=== PATIENT | male | born 1965 | race Caucasian/White ===

== ENCOUNTER → 2017-10-05 | Outpatient (CLI) | payer OTHER, BC | LOC: MHCPAIN 15:05 | DX: G89.29 Other chronic pain (principal); M47.27 Other spondylosis with radiculopathy, lumbosacral region; M53.3 Sacrococcygeal disorders, not elsewhere classified | CPT/HCPCS: G0463 ==

== ENCOUNTER 2020-01-29 09:48 | Inpatient (IN) | payer BC, OTHER ==
[~2020-01-29] VITALS: Ht 188 cm; Wt 124.5 kg
[2020-01-29 10:12] LABS: BASO # 0.1 (0.0-0.2); BASO % 0.5 % (0.0-2.0); EOS # 0.1 (0.0-0.7); EOS % 0.8 % (0-4.0); GRAN # 7.8 (1.4-6.5); GRAN % 77.9 % (42.2-75.2); HEMATOCRIT 44.5 % (42.0-52.0); HEMOGLOBIN 15.1 g/dl (13.5-18.0); LYMPH # 1.3 (1.2-3.4); LYMPH % 12.7 % (20.0-51.0); MEAN CELL VOLUME 91 fl (80.0-100.0); MEAN CORPUSCULAR HEMOGLOBIN 31 pg (27.0-31.0); MEAN CORPUSCULAR HGB CONC 34 g/dl (33.0-37.0); MEAN PLATELET VOLUME 9.1 fl (7.4-10.4); MONO # 0.8 (0.1-0.6); MONO % 7.7 % (1.7-9.3); PLATELET COUNT 285 K/mm3 (130-400); RED BLOOD COUNT 4.89 M/mm3 (4.20-5.60); REDCELL DISTRIBUTION WIDTH-CV 13.1 % (11.5-14.5)
[2020-01-29] MEDS ORDERED: COZAAR100 MG PO (10:17)
[2020-01-29] MEDS ORDERED: CYMBALTA 60MG60 MG PO (10:17)
[2020-01-29] MEDS ORDERED: IBU800 M1 PO (10:18)
[2020-01-29] MEDS ORDERED: PRILOSEC 20MG20 MG PO (10:18)
[2020-01-29] MEDS ORDERED: CIALIS10 MG PO (10:19)
[2020-01-29] MEDS ORDERED: VIAGRA100 M1 PO (10:20)
[2020-01-29 10:26] LABS: ALBUMIN 4.6 gm/dL (3.5-5.0); BILIRUBIN,TOTAL 0.6 mg/dL (0.0-1.0); C-REACTIVE PROTEIN 0.9 mg/dL (0.0-0.9); CALCIUM 10.5 mg/dL (8.4-10.2); CREATININE, serum 0.69 (0.66-1.25); POTASSIUM 4.1 mmol/L (3.4-5.0); TOTAL PROTEIN 7.7 gm/dL (6.4-8.2)
[2020-01-29 11:12] LABS: COLLECTION METHOD CLEAN CATCH
[2020-01-29 11:37] LABS: MUCOUS Present /lpf; PH 8 (5-8); SQUAMOUS EPITHELIAL None Seen /hpf; URINE APPEARANCE Cloudy; URINE BACTERIA None Seen /hpf; URINE BILIRUBIN Negative (NEGATIVE); URINE BLOOD 1+ (NEGATIVE); URINE COLOR Yellow; URINE GLUCOSE Negative (NEGATIVE); URINE KETONE Negative (NEGATIVE); URINE LEUKOCYTE ESTERASE Negative (NEGATIVE); URINE NITRATE Negative (NEGATIVE); URINE PROTEIN(semi-quant) 2+ (NEGATIVE); URINE UROBILINOGEN Negative (NEGATIVE)
--- NOTE | 2020-01-29 14:00 | NUR ---
Patient up from ER. Drowsy but arouses to voice. Oriented x 3. Denies pain at this time. Oriented to room. Assessment complete. Denies further needs at this time.
[2020-01-29 15:16] VITALS: BP 129/78; PULSE 66; TEMP 98.2
--- NOTE | 2020-01-29 17:59 | NUR ---
Patient has done well this afternoon. Denies pain at this time. Fluids infusing per orders to LH. Denies further needs at this time. Will report off to security shift manager.
[2020-01-29 22:50] VITALS: BP 131/68; PULSE 78
[2020-01-29 23:58] VITALS: BP 135/77; PULSE 90
[2020-01-30] VITALS (8 sets, daily range): BP systolic 115–165; BP diastolic 64–93; PULSE 74–95; TEMP 98–99.3
--- NOTE | 2020-01-30 06:16 | NUR ---
Patient returned from surgery at 2100, reports he was able to pass gas. Patient has not had complaints of nausea or vomiting this shift. Patient has been able to rest comfortably. No complaints of pain, vitals stable at this time.
[2020-01-30 06:39] LABS: BASO % 0.2 % (0.0-2.0); GRAN # 6.6 (1.4-6.5); GRAN % 81.2 % (42.2-75.2); HEMATOCRIT 38.8 % (42.0-52.0); LYMPH # 0.9 (1.2-3.4); LYMPH % 10.8 % (20.0-51.0); MEAN CELL VOLUME 95 fl (80.0-100.0); MEAN CORPUSCULAR HEMOGLOBIN 32 pg (27.0-31.0); MEAN CORPUSCULAR HGB CONC 33 g/dl (33.0-37.0); MEAN PLATELET VOLUME 9.2 fl (7.4-10.4); MONO # 0.6 (0.1-0.6); MONO % 7.4 % (1.7-9.3); PLATELET COUNT 271 K/mm3 (130-400); RED BLOOD COUNT 4.07 M/mm3 (4.20-5.60); REDCELL DISTRIBUTION WIDTH-CV 13.6 % (11.5-14.5)
[2020-01-30 06:46] LABS: HEMOGLOBIN 12.9 g/dl (13.5-18.0)
[2020-01-30 06:57] LABS: CALCIUM 9.1 mg/dL (8.4-10.2); CREATININE, serum 0.69 (0.66-1.25); POTASSIUM 4.3 mmol/L (3.4-5.0)
--- NOTE | 2020-01-30 08:32 | NUR ---
Spoke with Dr. Vogt. Orders received for clear liquid diet. Provided patient with water and jello and tray ordered from dietary. Patient denies pain. COntinues to pass gas. ABD lap sites with bandaids intact, old discharge noted through bandaid. Patient denies further needs at this time.
--- NOTE | 2020-01-30 11:05 | NUR ---
Lying in bed with eyes open. Explains that he tolerated the clear liquids without difficulty. Continues to pass flatus. Denies N/V. Explain that we can advance his diet for lunch, patient agrees. Denies further needs at this time.
--- NOTE | 2020-01-30 11:36 | NUR ---
First visit from the logistics supervisor. No needs right now.
--- NOTE | 2020-01-30 13:52 | NUR ---
Patient tolerates full lunch without difficulty and would like to move diet up to regular for dinner. IV fluids dc'd at this time per orders. Patient up to bathroom, has large bowel movement without difficulty. Patient denies further needs at this time.
--- NOTE | 2020-01-30 16:10 | NUR ---
Pattern Weaver met with patient to discuss discharge planning. Patient lives in [place] with his , Daisy (ph#[phone]) and sees Dr. Pineda for primary care. Patient obtains medications from the [facility] with no difficulties. Patient has a CPAP that he obtained from the DC and no other DME. Patient reports independence with ADLS. Patient does not have Advance Directives but was interested in taking home form. SW provided. Patient plans to return home upon discharge with his providing transportation. No additional needs at this time.
--- NOTE | 2020-01-30 18:05 | NUR ---
Lying in bed with eyes open. Denies pain. Continues to pass gas and has had several bowel movements this afternoon. Denies needs at this time.
--- NOTE | 2020-01-30 18:45 | NUR ---
Having soreness in abd and rib area and would like pain medication. Contacted Dr. Vogt to get order for oral pain medication. Watson administered at this time as prescribed.
--- NOTE | 2020-01-30 18:50 | NUR ---
Bedside report received from Hattie. Pt standing at bedside than sat on bed during report. Gait stable at this time. No complaints or concerns at this time.
[2020-01-31 05:10] VITALS: BP 131/72; PULSE 73; TEMP 97.7
[2020-01-31 07:06] LABS: HEMATOCRIT 38.7 % (42.0-52.0); HEMOGLOBIN 12.9 g/dl (13.5-18.0)
[2020-01-31 07:24] VITALS: BP 146/78; PULSE 70; TEMP 98.8
--- NOTE | 2020-01-31 07:44 | NUR ---
Report provided to Marisol. Pt resting in bed at this time.
[2020-01-31] MEDS ORDERED: PROTONIX 40MG T40 MG PO (08:59)
[2020-01-31] MEDS ORDERED: TYLENOL 325MG325 MG PO (09:00)
--- NOTE | 2020-01-31 10:47 | NUR ---
PT STABLE TODAY. REPORT RCVD FROM MICHELLE WRIGHT. PT HAS NO COMPLAINTS IS READY FOR DISCHARGE. DOCTOR ROUNDED AND DISCHARGED PT. PT ESCORTED OUT AT 1030.
== END 2020-01-31 10:48 | disposition home or self-care (01) | DRG 346 ==
LOC: COL.ER 09:48 → MEDICAL 12:38
PROVIDERS: Family Medicine; Physician Assistant; Surgery; ADMIT Student in an Organized Health Care Education/Training Program
PROC: 0DJD4ZZ Inspection of Lower Intestinal Tract, Percutaneous Endoscopic Approach (ICD-10-PCS; principal; 2020-01-29 19:30)
DX: K56.50 Intestinal adhesions [bands], unspecified as to partial versus complete obstruction (principal); R11.2 Nausea with vomiting, unspecified; E66.9 Obesity, unspecified; I10 Essential (primary) hypertension; M19.90 Unspecified osteoarthritis, unspecified site; R40.0 Somnolence; T40.2X5A Adverse effect of other opioids, initial encounter; K21.9 Gastro-esophageal reflux disease without esophagitis; Z98.890 Other specified postprocedural states; Z87.891 Personal history of nicotine dependence; Z68.35 Body mass index [BMI] 35.0-35.9, adult
CPT/HCPCS: 99232-AI; 99239; C9113; J0330; J0690; J1100; J2250; J2270; J2405; J2550; J2704; J3010; J7030; J7120; Q9967

== ENCOUNTER → 2020-02-05 | Outpatient (CLI) | payer BC ==
[~2020-02-05] MED LIST: CIALIS10 MG PO; COZAAR100 MG PO; CYMBALTA 60MG60 MG PO; IBU800 M1 PO; PRILOSEC 20MG20 MG PO; PROTONIX 40MG T40 MG PO; TYLENOL 325MG325 MG PO; VIAGRA100 M1 PO
== END ==
LOC: COL.RAD 08:00
DX: K56.609 Unspecified intestinal obstruction, unspecified as to partial versus complete obstruction (principal)

== ENCOUNTER 2022-04-09 12:48 | Inpatient (IN) | payer BC ==
[~2022-04-09] VITALS: Ht 188 cm; Wt 136.0 kg
[2022-04-09 14:29] LABS: BASO # 0.1 K/mm3 (0.0-0.2); BASO % 0.7 % (0.0-2.0); EOS # 0.2 K/mm3 (0.0-0.7); EOS % 2.7 % (0.0-4.0); GRAN % 68.3 % (42.2-75.2); HEMATOCRIT 40.9 % (42.0-52.0); HEMOGLOBIN 13.7 g/dl (13.5-18.0); LYMPH # 1.3 K/mm3 (1.2-3.4); MEAN CELL VOLUME 87 fl (80.0-100.0); MEAN CORPUSCULAR HEMOGLOBIN 29 pg (27-31); MEAN CORPUSCULAR HGB CONC 34 g/dl (33.0-37.0); MEAN PLATELET VOLUME 10.2 fl (7.4-10.4); MONO # 0.8 K/mm3 (0.1-0.6); MONO % 10.9 % (1.7-9.3); PLATELET COUNT 280 K/mm3 (130-400); RED BLOOD COUNT 4.71 M/mm3 (4.20-5.60); REDCELL DISTRIBUTION WIDTH-CV 13.8 % (11.5-14.5)
[2022-04-09 14:42] LABS: ALBUMIN 3.9 gm/dL (3.5-5.0); BILIRUBIN,TOTAL 0.4 mg/dL (0.2-1.2); CALCIUM 10.5 mg/dL (8.4-10.2); CREATININE, serum 0.82 mg/dL (0.72-1.25); POTASSIUM 3.9 mmol/L (3.5-4.5); TOTAL PROTEIN 7.4 gm/dL (6.2-8.1)
[2022-04-09 17:30] VITALS: BP 134/75; PULSE 59; TEMP 98.4
[2022-04-09] MEDS ORDERED: ULTRAM 50MG TAB50 MG PO (18:39)
[2022-04-09 19:49] VITALS: BP 122/68; PULSE 61; TEMP 97.6
--- NOTE | 2022-04-09 21:17 | NUR ---
PT IN BED. REPORTS HAVING A MIGRAINE. ABD DISTENDED, BS HYPOACTIVE. PT DENIES FLATUS. MEDICATED WITH MORPHINE 4MG IVP AT THIS TIME. IV SITE TO RAC WITHOUT REDNESS OR SWELLING WITH IVF INFUSING. UP AD FABIEN IN ROOM.
[2022-04-09 23:51] VITALS: BP 97/41; PULSE 54; TEMP 99
[2022-04-10 03:47] VITALS: BP 102/56; PULSE 61; TEMP 98.1
--- NOTE | 2022-04-10 04:02 | NUR ---
PT REPORTS RETURN OF MIGRAINE, DENIES ABD PAIN. MEDICATED WITH MORPHINE 4MG IVP. PT UNSURE IF HE HAS PASSED GAS, BUT REPORTS ABD FEELS BETTER.
[2022-04-10 06:22] LABS: MEAN CELL VOLUME 88 fl (80.0-100.0); MEAN CORPUSCULAR HEMOGLOBIN 29 pg (27-31); MEAN CORPUSCULAR HGB CONC 33 g/dl (33.0-37.0); MEAN PLATELET VOLUME 9.1 fl (7.4-10.4); PLATELET COUNT 287 K/mm3 (130-400); RED BLOOD COUNT 4.17 M/mm3 (4.20-5.60)
[2022-04-10 06:33] LABS: CALCIUM 9.4 mg/dL (8.4-10.2); CREATININE, serum 0.77 mg/dL (0.72-1.25); POTASSIUM 4.3 mmol/L (3.5-4.5)
[2022-04-10 06:34] LABS: HEMATOCRIT 36.5 % (42.0-52.0)
--- NOTE | 2022-04-10 08:00 | NUR ---
Patient laying in bed, pillow over his head. A&Ox4. VSS. IV CDI, fluids infusing. Reports having a headache. Diet advanced to clear liquid. Call light within reach
[2022-04-10 08:03] VITALS: BP 134/75; PULSE 63; TEMP 99
--- NOTE | 2022-04-10 11:10 | NUR ---
Initial visit; Patient thanked [employer] Supervisor for looking in on him and offering God's blessings and empathy for the excruciating headache he states he is experiencing. [employer] Supervisor will keep Neo in her prayers.
[2022-04-10 12:02] VITALS: BP 147/80; PULSE 68; TEMP 98
--- NOTE | 2022-04-10 14:40 | NUR ---
Pt in alot pain. Pt lives at home with his , Daisy [phone] in . Pt is independent on all ADLs and does not use any DME. Pt pcp is Manas [facility] and [facility] and has no trouble obtaining cost. No other needs at this time. SW to follow up. DC: Home with .
[2022-04-10 16:15] VITALS: BP 137/76; PULSE 80; TEMP 98.4
--- NOTE | 2022-04-10 18:10 | NUR ---
Patient sitting up on the edge of the bed. States that he "feels better" at the bedside. A&Ox4. VSS. IV CDI, fluids infuing. Denies pain and discomfort. Independent in the room. Call light within reach
[2022-04-10 19:22] VITALS: BP 138/64; PULSE 73; TEMP 98.5
--- NOTE | 2022-04-10 21:25 | NUR ---
ALERT AND OX4. DENIES SOA, CHEST PAIN OR DIZZY. STARTED TO PASS SOME GAS, NO COMPLAINTS OF CROSS.VAL WORKED FOR THAT. POC DISCUSSED. UP WALKING IN HALLS. CALL LIGHT WI REACH.
[2022-04-10 23:59] VITALS: BP 130/65; PULSE 69; TEMP 98.4
[2022-04-11 04:33] VITALS: BP 139/75; PULSE 57; TEMP 97.8
[2022-04-11 06:27] LABS: HEMOGLOBIN 11.6 g/dl (13.5-18.0); MEAN CELL VOLUME 88 fl (80.0-100.0); MEAN CORPUSCULAR HEMOGLOBIN 29 pg (27-31); MEAN CORPUSCULAR HGB CONC 33 g/dl (33.0-37.0); MEAN PLATELET VOLUME 9.3 fl (7.4-10.4); PLATELET COUNT 284 K/mm3 (130-400); RED BLOOD COUNT 3.99 M/mm3 (4.20-5.60); REDCELL DISTRIBUTION WIDTH-CV 13.9 % (11.5-14.5)
[2022-04-11 06:37] LABS: HEMATOCRIT 35.1 % (42.0-52.0)
[2022-04-11 06:44] LABS: CALCIUM 9.4 mg/dL (8.4-10.2); CREATININE, serum 0.77 mg/dL (0.72-1.25); POTASSIUM 3.8 mmol/L (3.5-4.5)
[2022-04-11 07:22] VITALS: BP 157/93; PULSE 63; TEMP 98
--- NOTE | 2022-04-11 07:52 | NUR ---
Patient sitting up in bed, A&Ox4. VSS. IV CDI, fluids infusing. Denies pain and discomfort. Reports passing gas. Independent in the room. Tolerating PO intake. Call light within reach
--- NOTE | 2022-04-11 10:43 | NUR ---
Discharge paperwork reviewed with the patient. Patient verbalized an understanding to follow doctors orders. Patient waiting on ride home and is going to take a shower before leaving. No further needs expressed. Call light within reach
--- NOTE | 2022-04-11 13:32 | NUR ---
IV removed, tip intact. Gauze and bandaid applied. Patient ambulated independently to awaiting vehicle. No further needs expressed. Call light within reach
== END 2022-04-11 13:32 | disposition home or self-care (01) | DRG 390 ==
LOC: COL.ER 12:48 → SURG 16:07
PROVIDERS: Personal Emergency Response Attendant; ADMIT Surgery
DX: K56.7 Ileus, unspecified (principal); I10 Essential (primary) hypertension; M19.90 Unspecified osteoarthritis, unspecified site; G43.909 Migraine, unspecified, not intractable, without status migrainosus
CPT/HCPCS: J1885; J2270; J2405; J3480; J7030; J7120; Q9967

== ENCOUNTER 2022-04-20 07:57 | Day surgery (SDC) | payer BC ==
[~2022-04-20] VITALS: Ht 188 cm; Wt 132.3 kg
[~2022-04-20 07:57] MED LIST changes: +ULTRAM 50MG TAB50 MG PO
[2022-04-20 08:37] VITALS: BP 138/82; PULSE 54; TEMP 97.7
[2022-04-20] MEDS ORDERED: FLOMAX 0.40.4 MG/CAP PO (08:42)
[2022-04-20] MEDS ORDERED: PROVENTIL0.09 MG/A1 IH (08:43)
[2022-04-20] MEDS ORDERED: MOBIC15 MG PO (08:43)
[2022-04-20] MEDS ORDERED: CYMBALTA 60MG60 MG PO (08:44)
[2022-04-20] MEDS ORDERED: COREG12.5 MG (09:06)
[2022-04-20 09:55] VITALS: BP 118/85; PULSE 62; TEMP 97
[2022-04-20 10:10] VITALS: BP 140/94; PULSE 57
--- NOTE | 2022-04-20 10:10 | NUR ---
1010 - Vitals obtained. Call mann remains within reach.
--- NOTE | 2022-04-20 10:11 | NUR ---
0955 - PT arrives from procedure, alert and oriented x4. PT assisted from cart to chair 2:1 via ambulation; steady gait. Monitors applied, warm blanekts applied. VSS. PT's provided PT with two bananas and a drink. PT denies nausea and pain. NO vomiting. Non-slip socks remain on. has left for appointment but states will return for pick-up. Verbal room report obtained.
[2022-04-20 10:25] VITALS: BP 133/79; PULSE 52
--- NOTE | 2022-04-20 10:32 | NUR ---
1025 - VSS. IV Zofran administered. PT has finished his two bananas. PT expressed desire to be discharged. Call mann remains within reach. PT denies questions or concerns following DR visit.
--- NOTE | 2022-04-20 10:48 | NUR ---
1045 - IV discontinued. CAtheter tip intact. Pressure bandage applied. No redness or swelling noted. DC instructions and educational material reviewed with the PT who verbalized understanding and signed the related paperwork. Questions answered to PT satisfaction. PT refused RN assistance changing into personal clothes. CAll mann remains within reach if needed. PT denies pain and nasuea.
--- NOTE | 2022-04-20 10:58 | NUR ---
1055 - PT dismissed from endo via wheelchair to the PT entrence by Chavez MARTINEZ. PT has DC packet and personal belongings. PT was transferred into the care of his , who is driving private car.
== END 2022-04-20 11:00 | disposition home or self-care (01) ==
LOC: SDCO 07:57
DX: Z12.11 Encounter for screening for malignant neoplasm of colon (principal); K64.0 First degree hemorrhoids; K57.30 Diverticulosis of large intestine without perforation or abscess without bleeding; G47.33 Obstructive sleep apnea (adult) (pediatric); Z80.0 Family history of malignant neoplasm of digestive organs; K21.9 Gastro-esophageal reflux disease without esophagitis
CPT/HCPCS: J2405; J2704; J7120